=== PATIENT | male | born 1945 | race Caucasian/White ===

== ENCOUNTER 2016-09-11 07:06 | Day surgery (SDC) | payer MEDICARE, BC ==
[2016-09-11] MEDS ORDERED: Lactated Ringers 1,000 ML IV SCH (08:15)
[2016-09-11] MEDS ORDERED: Propofol 200 MG/20 ML SDV IV ONE (09:30)
[2016-09-11] MEDS ORDERED: Midazolam 1 MG/ML 2 ML SDV IV ONE (09:30)
--- NOTE | 2016-09-11 10:02 | PCM.OPNOTE ---
- General Post-Op/Procedure Note Date of Surgery/Procedure: 09/11/16 Operative Procedure(s): c scope Findings: normal colon Pre Op Diagnosis: hx of dysplastic polyps Post-Op Diagnosis: nl colon Anesthesia Technique: MAC Primary Surgeon: Jonathan Rhoades Anesthesia Provider: Cammy Crook Pathology: none Complications: None Condition: Good Free Text/Narrative:: see dictation
[2016-09-11 12:08] VITALS: BP 138/93
--- NOTE | 2016-09-11 15:17 | OR ---
DATE OF OPERATION: 09/11/2016 SURGEON: Jonathan Rhoades MD PROCEDURE PERFORMED: Colonoscopy. PREOPERATIVE DIAGNOSIS: History of dysplastic polyps. POSTOPERATIVE DIAGNOSIS: Normal scope. INDICATIONS FOR PROCEDURE: This is a 70-year-old white male who presents for followup colonoscopy. Last scoped was 6 months ago, demonstrated some polyps with low-grade dysplasia. He was offered and accepted colonoscopy. DESCRIPTION OF PROCEDURE: After an excellent IV sedation was administered, digital rectal exam was performed. No marked abnormality was noted. Flexible colonoscope was inserted and advanced to the cecum. The prep was adequate. There were some areas that we had to irrigate. There was some particulate matter that did clog the scope. We did get an adequate view of the colon. The following findings were noted: Ascending colon, unremarkable. Transverse colon, unremarkable. Descending colon, unremarkable. Sigmoid and rectum unremarkable. Colon was deflated, scope was removed. The patient tolerated the procedure well and was taken to recovery room in good condition. RECOMMENDATIONS: Repeat colonoscopy in 3 years due to the prep. Follow up sooner pjas /[id number] /MODL
== END 2016-09-11 11:44 | disposition home or self-care (01) ==
LOC: FB.SDS 07:06
PROVIDERS: ATTEND Surgery
DX: Z12.11 Encounter for screening for malignant neoplasm of colon (principal); I10 Essential (primary) hypertension; F41.9 Anxiety disorder, unspecified; F32.9 Major depressive disorder, single episode, unspecified; Z79.899 Other long term (current) drug therapy; Z90.49 Acquired absence of other specified parts of digestive tract; Z98.890 Other specified postprocedural states
CPT/HCPCS: 00902; G0105; J2250; J2704; J7120

== ENCOUNTER 2019-09-13 16:48 | Inpatient (IN) | payer MEDICARE, BC ==
[2019-09-13] MEDS ORDERED: Thiamine 100 MG in Sodium Chloride 0.9% 100 ML IV ONE (17:20)
[2019-09-13] MEDS ORDERED: Dextrose 5%-0.45% NaCl 1,000 ML IV SCH (17:30)
--- NOTE | 2019-09-13 17:49 | EDM.PDOC ---
ED HPI GENERAL MEDICAL PROBLEM - General Chief Complaint: Drug or Alcohol Abuse Stated Complaint: DISORIENTED Time Seen by Provider: 09/13/19 16:55 Source of Information: Reports: Patient History Limitations: Reports: No Limitations - History of Present Illness INITIAL COMMENTS - FREE TEXT/NARRATIVE: Patient presented to the ED because of slurred speech and altered LOC. He is also confused and disoriented. There is no N/V or abdominal pain. He drinks on a daily basis and had seizure related to alcohol intoxication and withdrawal. He texted his who left him a month ago that he is better of not around and will just watch his grand kids from above. - Related Data Allergies Allergy/AdvReac Type Severity Reaction Status Date / Time No Known Allergies Allergy Verified 09/11/16 07:20 Home Meds: Home Meds busPIRone [Buspar] 15 mg PO BID 09/22/14 [History] Indomethacin [Indocin] 50 mg PO TIDMEALS #9 cap 10/03/14 [Rx] ALPRAZolam [Xanax] 1 mg PO BEDTIME 01/31/16 [History] Nortriptyline HCl [Pamelor] 100 mg PO BEDTIME 01/31/16 [History] PARoxetine HCl [Paxil] 40 mg PO BEDTIME 01/31/16 [History] Losartan/Hydrochlorothiazide [Losartan-HCTZ 100-12.5 MG] 12.5 - 100 mg PO DAILY 09/10/16 [History] Past Medical History HEENT History: Reports: Impaired Vision Cardiovascular History: Reports: Hypertension Respiratory History: Reports: None Gastrointestinal History: Reports: Colon Polyp, GI Bleed Genitourinary History: Reports: None Musculoskeletal History: Reports: Gout, Other (See Below) Other Musculoskeletal History: MAYALGIA AND MYOSITIS Other Neuro History: ATAXIA Psychiatric History: Reports: Anxiety, Depression Dermatologic History: Reports: Eczema - Infectious Disease History Infectious Disease History: Reports: Chicken Pox, Measles, Mononucleosis, Mumps - Past Surgical History Head Surgeries/Procedures: Reports: None HEENT Surgical History: Reports: Tonsillectomy Cardiovascular Surgical History: Reports: None GI Surgical History: Reports: None Male Surgical History: Reports: None Musculoskeletal Surgical History: Reports: None Oncologic Surgical History: Reports: None Social & Family History - Family History Family Medical History: Noncontributory - Tobacco Use Smoking Status *Q: Unknown Ever Smoked Used Tobacco, but Quit: No Second Hand Smoke Exposure: No - Caffeine Use Caffeine Use: Reports: Coffee - Recreational Drug Use Recreational Drug Use: No - Living Situation & Occupation Living situation: Reports: ED ROS GENERAL - Review of Systems Review Of Systems: See Below Constitutional: Denies: Fever, Chills HEENT: Reports: No Symptoms Respiratory: Reports: No Symptoms Cardiovascular: Reports: No Symptoms Endocrine: Reports: No Symptoms GI/Abdominal: Reports: No Symptoms : Reports: No Symptoms Musculoskeletal: Reports: No Symptoms Skin: Reports: No Symptoms Neurological: Reports: Confusion, Change in Speech. Denies: Headache Psychiatric: Reports: No Symptoms Hematologic/Lymphatic: Reports: No Symptoms Immunologic: Reports: No Symptoms - Physical Exam Exam: See Below Exam Limited By: Altered Mental Status General Appearance: Alert, No Apparent Distress Ears: Normal External Exam, Normal Canal, Hearing Grossly Normal Nose: Normal Inspection, Normal Mucosa, No Blood Throat/Mouth: Normal Inspection, Normal Lips, Normal Teeth, Normal Gums Head Exam: Atraumatic, Normocephalic Neck: Normal Inspection, Supple, Non-Tender, Full Range of Motion Respiratory/Chest: No Respiratory Distress, Lungs Clear, Normal Breath Sounds Cardiovascular: Normal Peripheral Pulses, Regular Rate, Rhythm, No Edema GI/Abdominal: Normal Bowel Sounds, Soft, Non-Tender, No Organomegaly, No Distention Neuro Exam (Abbreviated): No Motor/Sensory Deficits, Memory Loss Remote Events, Other (lethargic,disoriented and confused) Course - Vital Signs Text/Narrative:: Labs/Head CT-see result D5.9NS with thiamine 100 mg IV Detox will not take him because of his suicidal ideation and on the other hand [facility] will not evaluate him because he is intoxicated. Last Recorded V/S: Last Vital Signs Temp 36.5 C 09/13/19 16:50 Pulse 103 H 09/13/19 16:50 Resp 18 09/13/19 16:50 BP 135/84 09/13/19 16:50 Pulse Ox 99 09/13/19 16:50 - Orders/Labs/Meds Orders: Active Orders 24 hr Category Date Time Status Head wo Cont [CT] Stat Exams 09/13/19 16:53 Taken Dextrose 5%-0.9% NaCl [Dextrose 5%-Normal Saline] 1,000 Med 09/13/19 17:30 Active ml IV ASDIRECTED Medication Orders Dextrose/Sodium Chloride (Dextrose 5%-Normal Saline) 1,000 mls @ 999 mls/hr IV ASDIRECTED JITENDRA Last Admin: 09/13/19 18:11 Dose: 999 mls/hr Labs: Laboratory Tests 09/13/19 09/13/19 09/13/19 Range/Units 16:58 16:58 16:58 WBC 7.2 (4.5-12.0) X10-3/uL RBC 5.10 (4.30-5.75) x10(6)uL Hgb 15.5 (13.5-17.8) g/dL Hct 47.1 (30.0-51.3) % MCV 92.2 (80-96) fL MCH 30.3 (27.7-33.6) pg MCHC 32.9 (32.2-35.4) g/dL RDW 15.7 H (11.5-15.5) % Plt Count 282 (125-369) X10(3)uL MPV 6.3 L (7.4-10.4) fL Neut % (Auto) 70.6 (46-82) % Lymph % (Auto) 22.0 (13-37) % [place] % (Auto) 6.3 (4-12) % Eos % (Auto) 0 L (1.0-5.0) % Baso % (Auto) 1 (0-2) % Neut # (Auto) 5.0 (1.6-8.3) # Lymph # (Auto) 1.6 (0.6-5.0) # [place] # (Auto) 0.5 (0.0-1.3) # Eos # (Auto) 0.0 (0.0-0.8) # Baso # (Auto) 0.1 (0.0-0.2) # PT 9.3 (9.0-11.1) sec INR 0.96 L (1.00-1.24) APTT 23.4 L (24.4-33.2) SECONDS Sodium 141 (135-145) mmol/L Potassium 4.6 (3.5-5.3) mmol/L Chloride 103 (100-110) mmol/L Carbon Dioxide 23 (21-32) mmol/L BUN 24 H (7-18) mg/dL Creatinine 1.2 (0.70-1.30) mg/dL Est Cr Clr Drug Dosing 58.39 mL/min Estimated GFR (MDRD) 59 L (>60) BUN/Creatinine Ratio 20.0 (9-20) Glucose 60 L (80-116) mg/dL Calcium 8.5 L (8.6-10.2) mg/dL Total Bilirubin 0.5 (0.1-1.3) mg/dL AST 88 H (5-25) IU/L ALT 70 H (12-36) U/L Alkaline Phosphatase 97 (56-112) IU/L Troponin I (4.0-60.3) pg/mL Total Protein 7.1 (6.0-8.0) g/dL Albumin 3.6 (3.2-4.6) g/dL Globulin 3.5 g/dL Albumin/Globulin Ratio 1.0 Amylase (25-115) U/L Lipase (73-393) U/L Urine Opiates Screen (NEGATIVE) Ur Oxycodone Screen (NEGATIVE) Ur Propoxyphene Screen (NEGATIVE) Ur Barbituates Screen (NEGATIVE) Ur Tricyclics Screen (NEGATIVE) Ur Phencyclidine Scrn (NEGATIVE) Ur Amphetamine Screen (NEGATIVE) Urine MDMA Screen (NEGATIVE) U Benzodiazepines Scrn (NEGATIVE) U Cocaine Metab Screen (NEGATIVE) U Marijuana (THC) Screen (NEGATIVE) Ethyl Alcohol (<0.03) % 09/13/19 09/13/19 09/13/19 Range/Units 16:58 16:58 16:58 WBC (4.5-12.0) X10-3/uL RBC (4.30-5.75) x10(6)uL Hgb (13.5-17.8) g/dL Hct (30.0-51.3) % MCV (80-96) fL MCH (27.7-33.6) pg MCHC (32.2-35.4) g/dL RDW (11.5-15.5) % Plt Count (125-369) X10(3)uL MPV (7.4-10.4) fL Neut % (Auto) (46-82) % Lymph % (Auto) (13-37) % [place] % (Auto) (4-12) % Eos % (Auto) (1.0-5.0) % Baso % (Auto) (0-2) % Neut # (Auto) (1.6-8.3) # Lymph # (Auto) (0.6-5.0) # [place] # (Auto) (0.0-1.3) # Eos # (Auto) (0.0-0.8) # Baso # (Auto) (0.0-0.2) # PT (9.0-11.1) sec INR (1.00-1.24) APTT (24.4-33.2) SECONDS Sodium (135-145) mmol/L Potassium (3.5-5.3) mmol/L Chloride (100-110) mmol/L Carbon Dioxide (21-32) mmol/L BUN (7-18) mg/dL Creatinine (0.70-1.30) mg/dL Est Cr Clr Drug Dosing mL/min Estimated GFR (MDRD) (>60) BUN/Creatinine Ratio (9-20) Glucose (80-116) mg/dL Calcium (8.6-10.2) mg/dL Total Bilirubin (0.1-1.3) mg/dL AST (5-25) IU/L ALT (12-36) U/L Alkaline Phosphatase (56-112) IU/L Troponin I 15.8 (4.0-60.3) pg/mL Total Protein (6.0-8.0) g/dL Albumin (3.2-4.6) g/dL Globulin g/dL Albumin/Globulin Ratio Amylase 64 (25-115) U/L Lipase 102 (73-393) U/L Urine Opiates Screen (NEGATIVE) Ur Oxycodone Screen (NEGATIVE) Ur Propoxyphene Screen (NEGATIVE) Ur Barbituates Screen (NEGATIVE) Ur Tricyclics Screen (NEGATIVE) Ur Phencyclidine Scrn (NEGATIVE) Ur Amphetamine Screen (NEGATIVE) Urine MDMA Screen (NEGATIVE) U Benzodiazepines Scrn (NEGATIVE) U Cocaine Metab Screen (NEGATIVE) U Marijuana (THC) Screen (NEGATIVE) Ethyl Alcohol 0.25 H* (<0.03) % 09/13/19 Range/Units 18:26 WBC (4.5-12.0) X10-3/uL RBC (4.30-5.75) x10(6)uL Hgb (13.5-17.8) g/dL Hct (30.0-51.3) % MCV (80-96) fL MCH (27.7-33.6) pg MCHC (32.2-35.4) g/dL RDW (11.5-15.5) % Plt Count (125-369) X10(3)uL MPV (7.4-10.4) fL Neut % (Auto) (46-82) % Lymph % (Auto) (13-37) % [place] % (Auto) (4-12) % Eos % (Auto) (1.0-5.0) % Baso % (Auto) (0-2) % Neut # (Auto) (1.6-8.3) # Lymph # (Auto) (0.6-5.0) # [place] # (Auto) (0.0-1.3) # Eos # (Auto) (0.0-0.8) # Baso # (Auto) (0.0-0.2) # PT (9.0-11.1) sec INR (1.00-1.24) APTT (24.4-33.2) SECONDS Sodium (135-145) mmol/L Potassium (3.5-5.3) mmol/L Chloride (100-110) mmol/L Carbon Dioxide (21-32) mmol/L BUN (7-18) mg/dL Creatinine (0.70-1.30) mg/dL Est Cr Clr Drug Dosing mL/min Estimated GFR (MDRD) (>60) BUN/Creatinine Ratio (9-20) Glucose (80-116) mg/dL Calcium (8.6-10.2) mg/dL Total Bilirubin (0.1-1.3) mg/dL AST (5-25) IU/L ALT (12-36) U/L Alkaline Phosphatase (56-112) IU/L Troponin I (4.0-60.3) pg/mL Total Protein (6.0-8.0) g/dL Albumin (3.2-4.6) g/dL Globulin g/dL Albumin/Globulin Ratio Amylase (25-115) U/L Lipase (73-393) U/L Urine Opiates Screen Negative (NEGATIVE) Ur Oxycodone Screen Negative (NEGATIVE) Ur Propoxyphene Screen Negative (NEGATIVE) Ur Barbituates Screen Negative (NEGATIVE) Ur Tricyclics Screen Positive H (NEGATIVE) Ur Phencyclidine Scrn Negative (NEGATIVE) Ur Amphetamine Screen Negative (NEGATIVE) Urine MDMA Screen Negative (NEGATIVE) U Benzodiazepines Scrn Positive H (NEGATIVE) U Cocaine Metab Screen Negative (NEGATIVE) U Marijuana (THC) Screen Negative (NEGATIVE) Ethyl Alcohol (<0.03) % Meds: Medications Generic Name Dose Route Start Last Admin Trade Name Freq PRN Reason Stop Dose Admin Dextrose/Sodium Chloride 1,000 mls @ 999 mls/hr 09/13/19 17:30 09/13/19 18:11 Dextrose 5%-Normal Saline IV 999 mls/hr ASDIRECTED JITENDRA Administration Discontinued Medications Generic Name Dose Route Start Last Admin Trade Name Freq PRN Reason Stop Dose Admin Dextrose/Sodium Chloride 1,000 mls @ 999 mls/hr 09/13/19 17:30 Dextrose 5%-1/2 Ns IV ASDIRECTED JITENDRA Thiamine HCl 100 mg/ Sodium 101 mls @ 202 mls/hr 09/13/19 17:20 09/13/19 17: 38 Chloride IV 09/13/19 17:21 202 mls/hr ONETIME ONE Administration Departure - Departure Time of Disposition: 19:25 Disposition: Refer to Observation Condition: Good Clinical Impression: Alcohol intoxication, Suicidal ideation - Discharge Information Referrals: Roya Vergara NP [Primary Care Provider] - Forms: ED Department Discharge Sepsis Event Note - Evaluation Sepsis Screening Result: No Definite Risk - Focused Exam Vital Signs: Vital Signs Temp Pulse Resp BP Pulse Ox 09/13/19 16:50 36.5 C 103 H 18 135/84 99 Date Exam was Performed: 09/13/19 Time Exam was Performed: 19:22 - My Orders Last 24 Hours: My Active Orders 09/13/19 16:53 Head wo Cont [CT] Stat 09/13/19 17:30 Dextrose 5%-0.9% NaCl [Dextrose 5%-Normal Saline] 1,000 ml IV ASDIRECTED - Assessment/Plan Last 24 Hours: My Active Orders 09/13/19 16:53 Head wo Cont [CT] Stat 09/13/19 17:30 Dextrose 5%-0.9% NaCl [Dextrose 5%-Normal Saline] 1,000 ml IV ASDIRECTED
[2019-09-13] MEDS: Dextrose 5%-0.9% NaCl 1,000 ML IV SCH (18:11)
[2019-09-13] MEDS ORDERED: LORazepam 2 MG/ML SDV IVPUSH PRN (20:58)
[2019-09-14] MEDS ORDERED: Ketorolac 30 MG/ML SDV IM ONE (02:51)
[2019-09-14] MEDS: Sodium Chloride 0.9% 10 ML Syringe FLUSH PRN ×2 (02:56→12:40)
[2019-09-14] MEDS ORDERED: Ondansetron 4 MG/2 ML SDV IV PRN (04:12)
[2019-09-14] MEDS ORDERED: Docusate Sodium 100 MG Cap PO PRN (04:12)
[2019-09-14] MEDS ORDERED: Enoxaparin 40 MG/0.4 ML Syringe SUBCUT SCH (04:15)
[2019-09-14] MEDS ORDERED: Pantoprazole 40 MG Vial IVPUSH SCH (04:15)
[2019-09-14] MEDS: Dextrose 5%-0.9% NaCl 1,000 ML IV SCH (04:26)
[2019-09-14] MEDS ORDERED: Dextrose 5%-0.9% NaCl 1,000 ML IV SCH (04:30)
[2019-09-14] MEDS ORDERED: LORazepam 1 MG Tab PO SCH (10:00)
[2019-09-14] MEDS ORDERED: LORazepam 2 MG/ML SDV IV SCH (10:00)
--- NOTE | 2019-09-14 10:44 | CR ---
INDICATION: Alcohol intoxication. CHEST ONE VIEW: AP upright portable of the chest 09/14/19 was compared with 11/14. The heart appears to be slightly increased in size compared with the previous study with left ventricular prominence. The aorta is definitely more tortuous than on the previous study with minimal calcification suggested in the arch. Overlying EKG leads are noted. Linear densities are noted at the left lung base which may represent fibrosis and/or linear atelectasis. A definite active infiltrate or effusion was not identified. IMPRESSION: 1. Progressive ASHD. 2. Linear changes at the left lung base may represent linear atelectasis and/ or fibrosis. MTDD
--- NOTE | 2019-09-14 12:58 | PCM.DCSUM1 ---
Discharge Summary - Hospital Course HPI Initial Comments: Patient presented to the ED because of slurred speech and altered LOC. He is also confused and disoriented. There is no N/V or abdominal pain. He drinks on a daily basis and has had seizure related to alcohol intoxication and withdrawal. He texted his who left him a month ago that he is better of not around and will just watch his grand kids from above. Diagnosis: Stroke: No - Discharge Data Discharge Date: 09/14/19 ([facility]) Discharge Disposition: DC/Tfer to Acute Hospital 02 Condition: Stable - Referral to Home Health Primary Care Physician: Roya Vergara NP - Discharge Diagnosis/Problem(s) (1) Alcohol intoxication SNOMED Code(s): 37248722 ICD Code: F10.929 - ALCOHOL USE, UNSPECIFIED WITH INTOXICATION, UNSPECIFIED Status: Acute Current Visit: Yes (2) Suicidal ideation SNOMED Code(s): 6863634 ICD Code: R45.851 - SUICIDAL IDEATIONS Status: Acute Current Visit: Yes (3) Alcohol withdrawal syndrome SNOMED Code(s): 184571185 ICD Code: F10.239 - ALCOHOL DEPENDENCE WITH WITHDRAWAL, UNSPECIFIED Status : Acute Priority: High Current Visit: No Onset Date: 09/23/14 Problem Details: admit ICU (4) Gout SNOMED Code(s): 52894306 ICD Code: M10.9 - GOUT, UNSPECIFIED Status: Chronic Current Visit: No (5) Seizure due to alcohol withdrawal SNOMED Code(s): 624128225 ICD Code: F10.239 - ALCOHOL DEPENDENCE WITH WITHDRAWAL, UNSPECIFIED; R56.9 - UNSPECIFIED CONVULSIONS Status: Chronic Current Visit: Yes (6) Hypertension SNOMED Code(s): 24423863 ICD Code: I10 - ESSENTIAL (PRIMARY) HYPERTENSION Status: Chronic Priority : Low Current Visit: No Problem Details: continue medications - Patient Summary/Data Hospital Course: Patient came in early this morning with alcohol intoxication and some suicidal ideation, ER had contacted Detox and they wouldn't take due to suicidal ideation and Psych would not take due to intoxication. Labs showed some mild AST /ALT elevation, electrolytes where normal. CBC normal. Drug screen showed tricyclics and benzos which are home medications. Salicylates and Acetaminophen were negative. Alcohol was 0.250 at 4 am. He drinks heavily daily. History of seizure with withdrawal as well as hallucinations and DTs. Has been in treatment numerous times. States he had been sober for 4 years until Jun 2019 then started again, his left about a month ago and drinking more. He is interested in treatment. Spoke with [facility] as we are short staff to do 1 on 1 cares. He is still intoxicated. They accepted transfer to their [facility]. His Sayda is agreeable to transport him up to [place] for admission. - Patient Instructions Diet: Regular Diet as Tolerated, No Alcoholic Beverages Other/Special Instructions: Transfer to [facility] - Discharge Plan *PRESCRIPTION DRUG MONITORING PROGRAM REVIEWED*: Not Applicable *COPY OF PRESCRIPTION DRUG MONITORING REPORT IN PATIENT MERISSA: Not Applicable Home Medications: Home Meds busPIRone [Buspar] 15 mg PO BID 09/22/14 [History] Indomethacin [Indocin] 50 mg PO TIDMEALS #9 cap 10/03/14 [Rx] ALPRAZolam [Xanax] 1 mg PO BEDTIME 01/31/16 [History] Nortriptyline HCl [Pamelor] 100 mg PO BEDTIME 01/31/16 [History] PARoxetine HCl [Paxil] 40 mg PO BEDTIME 01/31/16 [History] Losartan/Hydrochlorothiazide [Losartan-HCTZ 100-12.5 MG] 1 tab PO DAILY [History] Oxygen Therapy Mode: Room Air Forms: ED Department Discharge Referrals: Roya Vergara, [facility] [Primary Care Provider] - - Discharge Summary/Plan Comment DC Time >30 min.: Yes - General Info Date of Service: 09/14/19 Admission Dx/Problem (Free Text: Denies suicidal thoughts this morning. Has trouble completing his sentences, still intoxicated. He states he is interested in doing treatment, prefers outpatient with [facility] services. Denies any fevers, cough, shortness of breath, abdominal pain. - Patient Data Vitals - Most Recent: Last Vital Signs Temp 98.0 F 09/14/19 08:12 Pulse 76 09/14/19 08:12 Resp 16 09/14/19 08:12 BP 150/97 H 09/14/19 08:12 Pulse Ox 99 09/14/19 08:12 Weight - Most Recent: 188 lb 7 oz I&O - Last 24 hours: Intake & Output 09/13/19 09/14/19 09/14/19 22:59 06:59 14:59 Intake Total 1101 227 300 Output Total 100 Balance 1001 227 300 Lab Results - Last 24 hrs: Laboratory Results - last 24 hr 09/13/19 09/13/19 09/13/19 Range/Units 16:58 16:58 16:58 WBC 7.2 (4.5-12.0) X10-3/uL RBC 5.10 (4.30-5.75) x10(6)uL Hgb 15.5 (13.5-17.8) g/dL Hct 47.1 (30.0-51.3) % MCV 92.2 (80-96) fL MCH 30.3 (27.7-33.6) pg MCHC 32.9 (32.2-35.4) g/dL RDW 15.7 H (11.5-15.5) % Plt Count 282 (125-369) X10(3)uL MPV 6.3 L (7.4-10.4) fL Neut % (Auto) 70.6 (46-82) % Lymph % (Auto) 22.0 (13-37) % [place] % (Auto) 6.3 (4-12) % Eos % (Auto) 0 L (1.0-5.0) % Baso % (Auto) 1 (0-2) % Neut # (Auto) 5.0 (1.6-8.3) # Lymph # (Auto) 1.6 (0.6-5.0) # [place] # (Auto) 0.5 (0.0-1.3) # Eos # (Auto) 0.0 (0.0-0.8) # Baso # (Auto) 0.1 (0.0-0.2) # PT 9.3 (9.0-11.1) sec INR 0.96 L (1.00-1.24) APTT 23.4 L (24.4-33.2) SECONDS Sodium 141 (135-145) mmol/L Potassium 4.6 (3.5-5.3) mmol/L Chloride 103 (100-110) mmol/L Carbon Dioxide 23 (21-32) mmol/L BUN 24 H (7-18) mg/dL Creatinine 1.2 (0.70-1.30) mg/dL Est Cr Clr Drug Dosing 58.39 mL/min Estimated GFR (MDRD) 59 L (>60) BUN/Creatinine Ratio 20.0 (9-20) Glucose 60 L (80-116) mg/dL Calcium 8.5 L (8.6-10.2) mg/dL Phosphorus (2.6-4.6) mg/dL Magnesium (1.8-2.5) mg/dL Total Bilirubin 0.5 (0.1-1.3) mg/dL AST 88 H (5-25) IU/L ALT 70 H (12-36) U/L Alkaline Phosphatase 97 (56-112) IU/L Troponin I (4.0-60.3) pg/mL Total Protein 7.1 (6.0-8.0) g/dL Albumin 3.6 (3.2-4.6) g/dL Globulin 3.5 g/dL Albumin/Globulin Ratio 1.0 Amylase (25-115) U/L Lipase (73-393) U/L TSH, Ultra Sensitive (0.36-3.74) IU/mL Salicylates (<2.8) mg/dL Urine Opiates Screen (NEGATIVE) Ur Oxycodone Screen (NEGATIVE) Ur Propoxyphene Screen (NEGATIVE) Acetaminophen (<2) ug/mL Ur Barbituates Screen (NEGATIVE) Ur Tricyclics Screen (NEGATIVE) Ur Phencyclidine Scrn (NEGATIVE) Ur Amphetamine Screen (NEGATIVE) Urine MDMA Screen (NEGATIVE) U Benzodiazepines Scrn (NEGATIVE) U Cocaine Metab Screen (NEGATIVE) U Marijuana (THC) Screen (NEGATIVE) Ethyl Alcohol (<0.03) % 09/13/19 09/13/19 09/13/19 Range/Units 16:58 16:58 16:58 WBC (4.5-12.0) X10-3/uL RBC (4.30-5.75) x10(6)uL Hgb (13.5-17.8) g/dL Hct (30.0-51.3) % MCV (80-96) fL MCH (27.7-33.6) pg MCHC (32.2-35.4) g/dL RDW (11.5-15.5) % Plt Count (125-369) X10(3)uL MPV (7.4-10.4) fL Neut % (Auto) (46-82) % Lymph % (Auto) (13-37) % [place] % (Auto) (4-12) % Eos % (Auto) (1.0-5.0) % Baso % (Auto) (0-2) % Neut # (Auto) (1.6-8.3) # Lymph # (Auto) (0.6-5.0) # [place] # (Auto) (0.0-1.3) # Eos # (Auto) (0.0-0.8) # Baso # (Auto) (0.0-0.2) # PT (9.0-11.1) sec INR (1.00-1.24) APTT (24.4-33.2) SECONDS Sodium (135-145) mmol/L Potassium (3.5-5.3) mmol/L Chloride (100-110) mmol/L Carbon Dioxide (21-32) mmol/L BUN (7-18) mg/dL Creatinine (0.70-1.30) mg/dL Est Cr Clr Drug Dosing mL/min Estimated GFR (MDRD) (>60) BUN/Creatinine Ratio (9-20) Glucose (80-116) mg/dL Calcium (8.6-10.2) mg/dL Phosphorus (2.6-4.6) mg/dL Magnesium (1.8-2.5) mg/dL Total Bilirubin (0.1-1.3) mg/dL AST (5-25) IU/L ALT (12-36) U/L Alkaline Phosphatase (56-112) IU/L Troponin I 15.8 (4.0-60.3) pg/mL Total Protein (6.0-8.0) g/dL Albumin (3.2-4.6) g/dL Globulin g/dL Albumin/Globulin Ratio Amylase 64 (25-115) U/L Lipase 102 (73-393) U/L TSH, Ultra Sensitive (0.36-3.74) IU/mL Salicylates (<2.8) mg/dL Urine Opiates Screen (NEGATIVE) Ur Oxycodone Screen (NEGATIVE) Ur Propoxyphene Screen (NEGATIVE) Acetaminophen (<2) ug/mL Ur Barbituates Screen (NEGATIVE) Ur Tricyclics Screen (NEGATIVE) Ur Phencyclidine Scrn (NEGATIVE) Ur Amphetamine Screen (NEGATIVE) Urine MDMA Screen (NEGATIVE) U Benzodiazepines Scrn (NEGATIVE) U Cocaine Metab Screen (NEGATIVE) U Marijuana (THC) Screen (NEGATIVE) Ethyl Alcohol 0.25 H* (<0.03) % 09/13/19 09/13/19 09/13/19 Range/Units 16:58 16:58 16:58 WBC (4.5-12.0) X10-3/uL RBC (4.30-5.75) x10(6)uL Hgb (13.5-17.8) g/dL Hct (30.0-51.3) % MCV (80-96) fL MCH (27.7-33.6) pg MCHC (32.2-35.4) g/dL RDW (11.5-15.5) % Plt Count (125-369) X10(3)uL MPV (7.4-10.4) fL Neut % (Auto) (46-82) % Lymph % (Auto) (13-37) % [place] % (Auto) (4-12) % Eos % (Auto) (1.0-5.0) % Baso % (Auto) (0-2) % Neut # (Auto) (1.6-8.3) # Lymph # (Auto) (0.6-5.0) # [place] # (Auto) (0.0-1.3) # Eos # (Auto) (0.0-0.8) # Baso # (Auto) (0.0-0.2) # PT (9.0-11.1) sec INR (1.00-1.24) APTT (24.4-33.2) SECONDS Sodium (135-145) mmol/L Potassium (3.5-5.3) mmol/L Chloride (100-110) mmol/L Carbon Dioxide (21-32) mmol/L BUN (7-18) mg/dL Creatinine (0.70-1.30) mg/dL Est Cr Clr Drug Dosing mL/min Estimated GFR (MDRD) (>60) BUN/Creatinine Ratio (9-20) Glucose (80-116) mg/dL Calcium (8.6-10.2) mg/dL Phosphorus (2.6-4.6) mg/dL Magnesium (1.8-2.5) mg/dL Total Bilirubin (0.1-1.3) mg/dL AST (5-25) IU/L ALT (12-36) U/L Alkaline Phosphatase (56-112) IU/L Troponin I (4.0-60.3) pg/mL Total Protein (6.0-8.0) g/dL Albumin (3.2-4.6) g/dL Globulin g/dL Albumin/Globulin Ratio Amylase (25-115) U/L Lipase (73-393) U/L TSH, Ultra Sensitive 0.51 (0.36-3.74) IU/mL Salicylates 0.8 L (<2.8) mg/dL Urine Opiates Screen (NEGATIVE) Ur Oxycodone Screen (NEGATIVE) Ur Propoxyphene Screen (NEGATIVE) Acetaminophen < 2 L (<2) ug/mL Ur Barbituates Screen (NEGATIVE) Ur Tricyclics Screen (NEGATIVE) Ur Phencyclidine Scrn (NEGATIVE) Ur Amphetamine Screen (NEGATIVE) Urine MDMA Screen (NEGATIVE) U Benzodiazepines Scrn (NEGATIVE) U Cocaine Metab Screen (NEGATIVE) U Marijuana (THC) Screen (NEGATIVE) Ethyl Alcohol (<0.03) % 09/13/19 09/14/19 09/14/19 Range/Units 18:26 06:15 06:15 WBC 6.5 (4.5-12.0) X10-3/uL RBC 4.51 (4.30-5.75) x10(6)uL Hgb 13.7 (13.5-17.8) g/dL Hct 41.1 (30.0-51.3) % MCV 91.3 (80-96) fL MCH 30.4 (27.7-33.6) pg MCHC 33.3 (32.2-35.4) g/dL RDW 15.5 (11.5-15.5) % Plt Count 246 (125-369) X10(3)uL MPV 6.5 L (7.4-10.4) fL Neut % (Auto) 72.0 (46-82) % Lymph % (Auto) 19.4 (13-37) % [place] % (Auto) 7.3 (4-12) % Eos % (Auto) 1 (1.0-5.0) % Baso % (Auto) 1 (0-2) % Neut # (Auto) 4.6 (1.6-8.3) # Lymph # (Auto) 1.3 (0.6-5.0) # [place] # (Auto) 0.5 (0.0-1.3) # Eos # (Auto) 0.1 (0.0-0.8) # Baso # (Auto) 0.0 (0.0-0.2) # PT (9.0-11.1) sec INR (1.00-1.24) APTT (24.4-33.2) SECONDS Sodium 141 (135-145) mmol/L Potassium 4.8 (3.5-5.3) mmol/L Chloride 105 (100-110) mmol/L Carbon Dioxide 28 (21-32) mmol/L BUN 24 H (7-18) mg/dL Creatinine 1.0 (0.70-1.30) mg/dL Est Cr Clr Drug Dosing 70.07 mL/min Estimated GFR (MDRD) > 60 (>60) BUN/Creatinine Ratio 24.0 H (9-20) Glucose 89 (80-116) mg/dL Calcium 7.8 L (8.6-10.2) mg/dL Phosphorus 2.3 L (2.6-4.6) mg/dL Magnesium 1.9 (1.8-2.5) mg/dL Total Bilirubin 0.8 (0.1-1.3) mg/dL AST 93 H (5-25) IU/L ALT 69 H (12-36) U/L Alkaline Phosphatase 81 (56-112) IU/L Troponin I (4.0-60.3) pg/mL Total Protein 6.1 (6.0-8.0) g/dL Albumin 3.1 L (3.2-4.6) g/dL Globulin 3.0 g/dL Albumin/Globulin Ratio 1.0 Amylase (25-115) U/L Lipase (73-393) U/L TSH, Ultra Sensitive (0.36-3.74) IU/mL Salicylates (<2.8) mg/dL Urine Opiates Screen Negative (NEGATIVE) Ur Oxycodone Screen Negative (NEGATIVE) Ur Propoxyphene Screen Negative (NEGATIVE) Acetaminophen (<2) ug/mL Ur Barbituates Screen Negative (NEGATIVE) Ur Tricyclics Screen Positive H (NEGATIVE) Ur Phencyclidine Scrn Negative (NEGATIVE) Ur Amphetamine Screen Negative (NEGATIVE) Urine MDMA Screen Negative (NEGATIVE) U Benzodiazepines Scrn Positive H (NEGATIVE) U Cocaine Metab Screen Negative (NEGATIVE) U Marijuana (THC) Screen Negative (NEGATIVE) Ethyl Alcohol (<0.03) % 09/14/19 Range/Units 06:15 WBC (4.5-12.0) X10-3/uL RBC (4.30-5.75) x10(6)uL Hgb (13.5-17.8) g/dL Hct (30.0-51.3) % MCV (80-96) fL MCH (27.7-33.6) pg MCHC (32.2-35.4) g/dL RDW (11.5-15.5) % Plt Count (125-369) X10(3)uL MPV (7.4-10.4) fL Neut % (Auto) (46-82) % Lymph % (Auto) (13-37) % [place] % (Auto) (4-12) % Eos % (Auto) (1.0-5.0) % Baso % (Auto) (0-2) % Neut # (Auto) (1.6-8.3) # Lymph # (Auto) (0.6-5.0) # [place] # (Auto) (0.0-1.3) # Eos # (Auto) (0.0-0.8) # Baso # (Auto) (0.0-0.2) # PT (9.0-11.1) sec INR (1.00-1.24) APTT (24.4-33.2) SECONDS Sodium (135-145) mmol/L Potassium (3.5-5.3) mmol/L Chloride (100-110) mmol/L Carbon Dioxide (21-32) mmol/L BUN (7-18) mg/dL Creatinine (0.70-1.30) mg/dL Est Cr Clr Drug Dosing mL/min Estimated GFR (MDRD) (>60) BUN/Creatinine Ratio (9-20) Glucose (80-116) mg/dL Calcium (8.6-10.2) mg/dL Phosphorus (2.6-4.6) mg/dL Magnesium (1.8-2.5) mg/dL Total Bilirubin (0.1-1.3) mg/dL AST (5-25) IU/L ALT (12-36) U/L Alkaline Phosphatase (56-112) IU/L Troponin I (4.0-60.3) pg/mL Total Protein (6.0-8.0) g/dL Albumin (3.2-4.6) g/dL Globulin g/dL Albumin/Globulin Ratio Amylase (25-115) U/L Lipase (73-393) U/L TSH, Ultra Sensitive (0.36-3.74) IU/mL Salicylates (<2.8) mg/dL Urine Opiates Screen (NEGATIVE) Ur Oxycodone Screen (NEGATIVE) Ur Propoxyphene Screen (NEGATIVE) Acetaminophen (<2) ug/mL Ur Barbituates Screen (NEGATIVE) Ur Tricyclics Screen (NEGATIVE) Ur Phencyclidine Scrn (NEGATIVE) Ur Amphetamine Screen (NEGATIVE) Urine MDMA Screen (NEGATIVE) U Benzodiazepines Scrn (NEGATIVE) U Cocaine Metab Screen (NEGATIVE) U Marijuana (THC) Screen (NEGATIVE) Ethyl Alcohol < 0.03 (<0.03) % Med Orders - Current: Current Medications Docusate Sodium (Colace) 100 mg PO BID PRN PRN Reason: Constipation Enoxaparin Sodium (Lovenox) 40 mg SUBCUT Q24H JITENDRA Dextrose/Sodium Chloride (Dextrose 5%-Normal Saline) 1,000 mls @ 999 mls/hr IV ASDIRECTED JITENDRA Last Admin: 09/14/19 04:26 Dose: 999 mls/hr Dextrose/Sodium Chloride (Dextrose 5%-Normal Saline) 1,000 mls @ 125 mls/hr IV ASDIRECTED JITENDRA Lorazepam (Ativan) 0 mg PO ASDIRECTED JITENDRA; Protocol Lorazepam (Ativan) 0 mg IV ASDIRECTED JITENDRA; Protocol Ondansetron HCl (Zofran) 4 mg IV Q4H PRN PRN Reason: Nausea/Vomiting Pantoprazole Sodium (Protonix Iv) 40 mg IVPUSH Q24H JITENDRA Last Admin: 04/13/20 05:32 Dose: 40 mg Sodium Chloride (Saline Flush) 10 ml FLUSH ASDIRECTED PRN PRN Reason: Other Last Admin: 09/14/19 02:56 Dose: 10 ml Discontinued Medications Enoxaparin Sodium (Lovenox) 40 mg SUBCUT Q24H [facility] Last Admin: 09/14/19 05:33 Dose: 40 mg Dextrose/Sodium Chloride (Dextrose 5%-1/2 Ns) 1,000 mls @ 999 mls/hr IV ASDIRECTED JITENDRA Thiamine HCl 100 mg/ Sodium (Chloride) 101 mls @ 202 mls/hr IV ONETIME ONE Stop: 09/13/19 17:21 Last Admin: 09/13/19 17:38 Dose: 202 mls/hr Ketorolac Tromethamine (Toradol) 15 mg IM ONETIME ONE Stop: 09/14/19 02:52 Last Admin: 09/14/19 02:55 Dose: 15 mg Lorazepam (Ativan) 2 mg IVPUSH ONETIME PRN PRN Reason: Anxiety Last Admin: 09/14/19 02:29 Dose: 2 mg - Exam General: Reports: Cooperative, No Acute Distress, Other (Intoxicated) Lungs: Reports: Clear to Auscultation, Normal Respiratory Effort Cardiovascular: Reports: Regular Rate, Regular Rhythm GI/Abdominal Exam: Normal Bowel Sounds, Soft, Non-Tender, No Distention Extremities: No Pedal Edema Neurological: Reports: Other (tremors) Psy/Mental Status: Denies: Suicidal Ideation, Hallucinations
[2019-09-14 15:10] VITALS: BP 144/100; PULSE 89
[2019-09-15] MEDS ORDERED: Enoxaparin 40 MG/0.4 ML Syringe SUBCUT SCH (08:00)
== END 2019-09-14 14:30 | DRG 897 ==
LOC: FB.ED 16:48 → FB.MS 09-14 04:32 → FB.ICU 09-14 04:57
PROVIDERS: ADMIT Emergency Medicine; ATTEND Family Medicine
DX: R45.851 Suicidal ideations (principal); F10.129 Alcohol abuse with intoxication, unspecified; Y90.9 Presence of alcohol in blood, level not specified; H54.7 Unspecified visual loss; F10.229 Alcohol dependence with intoxication, unspecified; F10.239 Alcohol dependence with withdrawal, unspecified; Z86.010 Personal history of colon polyps; Y90.0 Blood alcohol level of less than 20 mg/100 ml; R56.9 Unspecified convulsions; I10 Essential (primary) hypertension; M10.9 Gout, unspecified; F10.231 Alcohol dependence with withdrawal delirium; F41.9 Anxiety disorder, unspecified; F32.9 Major depressive disorder, single episode, unspecified; Z79.899 Other long term (current) drug therapy
CPT/HCPCS: 36415; 70450; 71045; 80053; 80305-QW; 80307; 82150; 83690; 83735; 84100; 84439; 84443; 84484; 85025; 85610; 85730; 96365; 96372; 96375; 99283; 99285-25; A9270-GY; C9113; J1650; J1885; J2060; J3411; J7050

== ENCOUNTER 2019-09-21 12:13 | Inpatient (IN) | payer MEDICARE, BC ==
[2019-09-21] MEDS: Indomethacin 25 MG Cap PO SCH (18:34)
[2019-09-21] MEDS: atorvaSTATin 10 MG Tab PO SCH (21:19)
[2019-09-21] MEDS: Aspirin 81 MG Tab.EC PO SCH (21:19)
[2019-09-21] MEDS: PARoxetine 20 MG Tab PO SCH (21:20)
[2019-09-21] MEDS ORDERED: Nortriptyline 25 MG Cap PO ONE (21:30)
[2019-09-22] MEDS: Indomethacin 25 MG Cap PO SCH (08:14)
[2019-09-22] MEDS: Losartan 100 MG Tab PO SCH (08:15)
[2019-09-22] MEDS: Propranolol 60 MG Cap.ER PO SCH (08:15)
[2019-09-22] MEDS: Hydrochlorothiazide 25 MG Tab PO SCH (08:15)
--- NOTE | 2019-09-22 10:38 | PN ---
DATE SEEN: 09/22/2019 Matthias Sands is a 73-year-old male admitted for rehab purposes. He had a lengthy 1-week stay in [place] for acute alcohol withdrawal. He had been drinking heavily since June. Lost his dog. Therapy is in place, appears to be more of a neuro/mental/cognitive impairment issue. Discharge home maybe a contrary thought, rehab intervention in the meantime. /[id number] JACQUELINE/TASH
--- NOTE | 2019-09-22 11:10 | HP ---
ADMISSION DATE: 09/21/2019 CHIEF COMPLAINT: Rehab, complicated alcohol disorder. HISTORY OF PRESENT ILLNESS: Matthias Sands is a 73-year-old male from [place], who was admitted in followup. Had acute care stay from 09/14/2019 to 09/21/2019 at [facility]. Admitted with acute alcohol intoxication, subsequent withdrawal, moderately severe withdrawal with usual treatment. After improvement withdrawal symptoms, the patient's underlying cognitive impairment was markedly impaired. Undergone MOCA assessment, scoring 15/30, particular deficits were more severe in areas such as short-term memory, coordination, organized thinking, unable to place hands and numbers in order to draw clock, unable to hold a functional conversation without diverting. Lacks safety awareness and complete lack of insight of his own deficits presenting as extreme safety concern. Works with therapy during his stay. Added propranolol due to his basal tremor. He was transferred to [facility] for rehab therapy. MEDICATIONS AT TIME OF ADMISSION: Include: 1. Alprazolam 1 mg 1 p.o. at bedtime, sleep enhancement. 2. Aspirin 81 mg 1 p.o. daily, CAD prevention. 3. Atorvastatin 10 mg 1 p.o. daily, hyperlipidemia. 4. Hydrochlorothiazide 25 mg 1 p.o. daily, blood pressure. 5. Indomethacin 50 mg b.i.d., joint pain. 6. Losartan 100 mg 1 p.o. daily, blood pressure. 7. Nortriptyline 50 mg 1 p.o. at bedtime, sleep enhancement. 8. Paroxetine 40 mg 1 p.o. daily, mood stabilizer. 9. Propanolol XL 60 mg one p.o. daily, tremor. ALLERGIES: No known allergies to medication, environmental, or latex allergies. PAST MEDICAL HISTORY: Significant for previous appendectomy. Chronic illness issues include anxiety, depression, hyperuricemia, and hyperlipidemia. SOCIAL HISTORY: Retired, had worked for many years at [employer], [place] before that time. Still , but physically. [place] She lives in an apartment. Three grown sons. Smoked a bit in college. Alcohol, major issue, had 4 years of sobriety prior to beginning increased alcohol intake in June 2019. No illicit drug use. Does do some chewing tobacco. FAMILY HISTORY: Negative for early heart disease, diabetes mellitus, or inheritable cancers. REVIEW OF SYSTEMS: GENERAL: Cognitively markedly impaired. EYES: Sees well. EARS: Difficulty in crowds. OROPHARYNX: Intact dentition. No loose teeth. CHEST: No cough, wheeze, or congestion. CV: Denies chest pain, palpitations, or syncope. GI: Regular predictable stools. No blood in stools. : Good voiding pattern. Nocturia x1. Decreased stream. SKIN: No lesions, eruptions, or moles. ENDOCRINE: No excessive thirst or urination. ALLERGIES: Noted. PHYSICAL EXAMINATION: VITAL SIGNS: 36.7, 134/88, pulse 64, 18, and 97% on room air. GENERAL: Bright, alert, awake, cognitively troubled. Funduscopic benign. HEENT: Bright TMs. Clear nasal discharge. Mouth and oropharynx clear. NECK: Benign. Thyroid small. CHEST: On auscultation, clear all lung garcia. HEART: On auscultation, no ectopy or murmur. ABDOMEN: Benign. No hepatosplenomegaly. AND RECTAL: Deferred. EXTREMITIES: Well perfused. LABORATORY STUDIES: None indicated, reviewed from [place]. IMPRESSION: Complicated long-term alcohol abuse and misuse, increasingly cognitive concerns. PLAN: Rehab in place. Intervention and care, returning to an independent living situation may be contrary. /[id number] JACQUELINE/TASH JOY
[2019-09-22] MEDS: Aspirin 81 MG Tab.EC PO SCH (20:21)
[2019-09-22] MEDS: atorvaSTATin 10 MG Tab PO SCH (20:22)
[2019-09-22] MEDS: Nortriptyline 25 MG Cap PO SCH (20:22)
[2019-09-22] MEDS: PARoxetine 20 MG Tab PO SCH (20:24)
[2019-09-22] MEDS: ALPRAZolam 1 MG Tab PO PRN (22:28)
[2019-09-23] MEDS: Losartan 100 MG Tab PO SCH (09:58)
[2019-09-23] MEDS: Hydrochlorothiazide 25 MG Tab PO SCH (09:58)
[2019-09-23] MEDS: Propranolol 60 MG Cap.ER PO SCH (09:58)
--- NOTE | 2019-09-23 10:49 | PN ---
DATE SEEN: 09/23/2019 SUBJECTIVE: Matthias Sands is a 73-year-old male, admitted from [place] in [place]. Issues in impactful well being, alcohol misuse and abuse. Then some issues of mentation, thought, and directed attention. I spoke at length about issues and concerns, avoidance of alcohol, resources, self-help. Plans to get home[place] Lives independently. 's not actively involved in the relationship. Therapy feels things are comfortable. MEDICATIONS: Reviewed and are benign in nature. 1. Alprazolam 1 mg at bedtime. 2. 81 mg baby aspirin. 3. Atorvastatin 10 mg daily, hyperlipidemia. 4. Losartan 100 mg 1 daily hypertension. 5. Nortriptyline 100 mg at bedtime, sleep enhancement. 6. Paroxetine 60 mg 1 p.o. daily, mood stabilizer. 7. Inderal LA 60 mg daily, tremor. 8. Indomethacin 50 mg b.i.d., which had been discontinued. 9. Nortriptyline will be maintained. PHYSICAL EXAMINATION: VITAL SIGNS: 36.7, 147/83, 18, and 98. GENERAL: Appears comfortable. Speech was gated but appropriate. Thought processes were pretty well organized. HEENT: Unremarkable. NECK: Supple. Thyroid small. CHEST: Clear. HEART: Regular. ABDOMEN: Rotund. ASSESSMENT: Complicated alcoholic disease. PLAN[place], uncertain of great goals of present therapy. Returning home is planned. /[id number] JACQUELINE/TASH JOY
[2019-09-23] MEDS: atorvaSTATin 10 MG Tab PO SCH (20:27)
[2019-09-23] MEDS: PARoxetine 20 MG Tab PO SCH (20:27)
[2019-09-23] MEDS: Nortriptyline 25 MG Cap PO SCH (20:27)
[2019-09-23] MEDS: Aspirin 81 MG Tab.EC PO SCH (20:27)
[2019-09-23] MEDS: ALPRAZolam 1 MG Tab PO PRN (21:24)
[2019-09-24] MEDS: Losartan 100 MG Tab PO SCH (08:24)
[2019-09-24] MEDS: Hydrochlorothiazide 25 MG Tab PO SCH (08:25)
[2019-09-24] MEDS: Propranolol 60 MG Cap.ER PO SCH (08:25)
[2019-09-24] MEDS: atorvaSTATin 10 MG Tab PO SCH (20:54)
[2019-09-24] MEDS: Aspirin 81 MG Tab.EC PO SCH (20:54)
[2019-09-24] MEDS: Nortriptyline 25 MG Cap PO SCH (20:54)
[2019-09-24] MEDS: PARoxetine 20 MG Tab PO SCH (20:55)
[2019-09-24] MEDS: ALPRAZolam 1 MG Tab PO PRN (23:40)
--- NOTE | 2019-09-25 08:37 | PN ---
DATE SEEN: 09/24/2019 HISTORY OF PRESENT ILLNESS: Matthias Sands is a 73-year-old male, admitted for short-term swing bed stay. Had acute care stay at [facility], 09/14/2019 to 09/21/2019. Presented with acute alcohol intoxication, markedly complicated withdrawal, underlying cognitive impairment, and a sense of deconditioning. It was felt appropriate that swing bed stay would be obtained. Was admitted to [facility] on 09/21/2019. PT/OT nursing staff was involved, ambulated, skills were noted, cognitive impairment impact of his alcohol abuse was apparent. The [facility] and other caregivers will be involved, including [facility]. MEDICATIONS: Reviewed and appropriate. PHYSICAL EXAMINATION: VITAL SIGNS: At the time of dictation, 118/80, 90, 20, 98%, pulse 61. GENERAL: Appears comfortable. In good spirits. NECK: Benign. Thyroid small. CHEST: On auscultation, clear all lung garcia. HEART: On auscultation, no ectopy or murmur. ABDOMEN: Benign. Little bit tremulous, but controlled. ASSESSMENT: Chronic recurrent complicated alcohol and its psychosocial, emotional, and physical impact. PLAN: Walker provided, consideration for home health, [facility] will be involved in skills and allowability of driving and self-care issues. Discharge on hold, pending placement. SURGICAL PROCEDURES: None. CONSULTATION: None. /[id number] JACQUELINE/TASH JOY
[2019-09-25] MEDS: Hydrochlorothiazide 25 MG Tab PO SCH (09:06)
[2019-09-25] MEDS: Losartan 100 MG Tab PO SCH (09:06)
[2019-09-25] MEDS: Propranolol 60 MG Cap.ER PO SCH (09:06)
[2019-09-25] MEDS: atorvaSTATin 10 MG Tab PO SCH (21:36)
[2019-09-25] MEDS: Aspirin 81 MG Tab.EC PO SCH (21:36)
[2019-09-25] MEDS: PARoxetine 20 MG Tab PO SCH (21:36)
[2019-09-25] MEDS: Nortriptyline 25 MG Cap PO SCH (21:36)
[2019-09-25] MEDS: ALPRAZolam 1 MG Tab PO PRN (21:37)
[2019-09-26] MEDS: Hydrochlorothiazide 25 MG Tab PO SCH ×2 (09:04→11:25)
[2019-09-26] MEDS ORDERED: Losartan 50 MG Tab PO ONE (11:00)
[2019-09-26] MEDS ORDERED: Hydrochlorothiazide 12.5 MG Cap PO ONE (11:00)
[2019-09-26] MEDS: Propranolol 60 MG Cap.ER PO SCH (11:23)
[2019-09-26] MEDS: Losartan 100 MG Tab PO SCH (11:25)
[2019-09-26] MEDS: atorvaSTATin 10 MG Tab PO SCH (20:33)
[2019-09-26] MEDS: PARoxetine 20 MG Tab PO SCH (20:33)
[2019-09-26] MEDS: Aspirin 81 MG Tab.EC PO SCH (20:33)
[2019-09-26] MEDS: Nortriptyline 25 MG Cap PO SCH (20:33)
[2019-09-27] MEDS ORDERED: Hydrochlorothiazide 25 MG Tab PO SCH (09:00)
[2019-09-27] MEDS: Losartan 50 MG Tab PO SCH (09:40)
[2019-09-27] MEDS: Hydrochlorothiazide 12.5 MG Cap PO SCH (09:40)
[2019-09-27] MEDS: Propranolol 60 MG Cap.ER PO SCH (09:41)
[2019-09-27] MEDS: atorvaSTATin 10 MG Tab PO SCH (21:41)
[2019-09-27] MEDS: Aspirin 81 MG Tab.EC PO SCH (21:41)
[2019-09-27] MEDS: Nortriptyline 25 MG Cap PO SCH (21:41)
[2019-09-27] MEDS: PARoxetine 20 MG Tab PO SCH (21:41)
[2019-09-27] MEDS ORDERED: Indomethacin 25 MG Cap PO ONE (21:53)
[2019-09-28] MEDS ORDERED: Indomethacin 25 MG Cap PO PRN (08:32)
--- NOTE | 2019-09-28 08:36 | PCM.PN ---
- General Info Date of Service: 09/28/19 Admission Dx/Problem (Free Text): This is a 73-year-old male patient here for swing bed rehabilitation for alcohol abuse, withdrawal it's already happened in because of cognitive decline. He has no concerns today other than he has recurrent gout niece his left great toes bothering little bit. He is given some indomethacin 1 last night. He like his medicine reorder. He denies shortness breath, chest pain, leg swelling. - Patient Data Vitals - Most Recent: Last Vital Signs Temp 98.3 F 09/27/19 09:00 Pulse 76 09/27/19 09:00 Resp 18 09/27/19 09:00 BP 108/80 09/27/19 09:40 Pulse Ox 97 09/27/19 09:00 Weight - Most Recent: 184 lb Med Orders - Current: Current Medications Alprazolam (Xanax) 1 mg PO BEDTIME PRN PRN Reason: Anxiety Last Admin: 09/25/19 21:37 Dose: 1 mg Aspirin (Halfprin) 81 mg PO BEDTIME [facility] Last Admin: 09/27/19 21:41 Dose: 81 mg Atorvastatin Calcium (Lipitor) 10 mg PO BEDTIME [facility] Last Admin: 09/27/19 21:41 Dose: 10 mg Hydrochlorothiazide (Hydrochlorothiazide) 12.5 mg PO DAILY [facility] Last Admin: 09/27/19 09:40 Dose: 12.5 mg Losartan Potassium (Cozaar) 50 mg PO DAILY [facility] Last Admin: 09/27/19 09:40 Dose: 50 mg Nortriptyline HCl (Nortriptyline) 100 mg PO BEDTIME [facility] Last Admin: 09/27/19 21:41 Dose: 100 mg Paroxetine HCl (Paxil) 40 mg PO BEDTIME [facility] Last Admin: 09/27/19 21:41 Dose: 40 mg Propranolol HCl (Inderal La) 60 mg PO DAILY [facility] Last Admin: 09/27/19 09:41 Dose: 60 mg Discontinued Medications Hydrochlorothiazide (Hydrochlorothiazide) 25 mg PO DAILY [facility] Last Admin: 09/26/19 11:25 Dose: Not Given Hydrochlorothiazide (Hydrochlorothiazide) 25 mg PO DAILY [facility] Hydrochlorothiazide (Hydrochlorothiazide) 12.5 mg PO ONETIME ONE Stop: 09/26/19 11:01 Last Admin: 09/26/19 11:23 Dose: 12.5 mg Indomethacin (Indocin) 50 mg PO BIDMEALS [facility] Last Admin: 09/22/19 08:14 Dose: 50 mg Indomethacin (Indocin) 50 mg PO ONETIME ONE Stop: 09/27/19 21:54 Last Admin: 09/27/19 22:09 Dose: 50 mg Losartan Potassium (Cozaar) 100 mg PO DAILY [facility] Last Admin: 09/26/19 11:25 Dose: Not Given Losartan Potassium (Cozaar) 100 mg PO DAILY [facility] Losartan Potassium (Cozaar) 50 mg PO ONETIME ONE Stop: 09/26/19 11:01 Last Admin: 09/26/19 11:23 Dose: 50 mg Nortriptyline HCl (Nortriptyline) 100 mg PO BEDTIME [facility] Last Admin: 09/21/19 21:27 Dose: Not Given Nortriptyline HCl (Nortriptyline) 100 mg PO NOW ONE Stop: 09/21/19 21:31 Last Admin: 09/21/19 21:27 Dose: 100 mg - Exam General: Alert, Oriented, Cooperative Lungs: Clear to Auscultation, Normal Respiratory Effort Cardiovascular: Regular Rate, Regular Rhythm, No Murmurs Extremities: Other (Little bit of discomfort of the first metatarsal joint on the left side. No erythema or swelling.) Sepsis Event Note - Evaluation Sepsis Screening Result: No Definite Risk - Problem List & Annotations (1) Acute cognitive decline SNOMED Code(s): 121915272 Code(s): R41.841 - COGNITIVE COMMUNICATION DEFICIT Status: Acute Current Visit: Yes (2) Alcohol intoxication SNOMED Code(s): 92825539 Code(s): F10.129 - ALCOHOL ABUSE WITH INTOXICATION, UNSPECIFIED Status: Acute Current Visit: No (3) Alcohol withdrawal syndrome SNOMED Code(s): 717296427 Code(s): F10.239 - ALCOHOL DEPENDENCE WITH WITHDRAWAL, UNSPECIFIED Status: Acute Priority: High Current Visit: No Onset Date: 09/23/14 Annotation/ Comment:: admit ICU (4) Gout SNOMED Code(s): 23619690 Code(s): M10.9 - GOUT, UNSPECIFIED Status: Chronic Current Visit: No - Problem List Review Problem List Initiated/Reviewed/Updated: Yes - My Orders Last 24 Hours: My Active Orders 09/27/19 09:00 Losartan [Cozaar] 50 mg PO DAILY hydroCHLOROthiazide 12.5 mg PO DAILY 09/28/19 08:32 Indomethacin [Indocin] 50 mg PO TIDMEALS PRN - Plan Plan:: 1. Continue current care. 2. Indomethacin 50 mg 3 times a day when necessary for gout. 3. Patient is waiting for possible transfer to [place] for alcohol treatment.
[2019-09-28] MEDS: Losartan 50 MG Tab PO SCH (08:39)
[2019-09-28] MEDS: Hydrochlorothiazide 12.5 MG Cap PO SCH (08:39)
[2019-09-28] MEDS: Propranolol 60 MG Cap.ER PO SCH (08:39)
[2019-09-28] MEDS ORDERED: Losartan 100 MG Tab PO SCH (09:00)
[2019-09-28] MEDS: atorvaSTATin 10 MG Tab PO SCH (20:49)
[2019-09-28] MEDS: Nortriptyline 25 MG Cap PO SCH (20:49)
[2019-09-28] MEDS: Aspirin 81 MG Tab.EC PO SCH (20:49)
[2019-09-28] MEDS: PARoxetine 20 MG Tab PO SCH (20:50)
[2019-09-29] MEDS: Propranolol 60 MG Cap.ER PO SCH (09:08)
[2019-09-29] MEDS: Hydrochlorothiazide 12.5 MG Cap PO SCH (09:08)
[2019-09-29] MEDS: Losartan 50 MG Tab PO SCH (09:08)
[2019-09-29] MEDS: Aspirin 81 MG Tab.EC PO SCH (20:13)
[2019-09-29] MEDS: Nortriptyline 25 MG Cap PO SCH (20:14)
[2019-09-29] MEDS: PARoxetine 20 MG Tab PO SCH (20:14)
[2019-09-29] MEDS: atorvaSTATin 10 MG Tab PO SCH (20:14)
[2019-09-30] MEDS: Hydrochlorothiazide 12.5 MG Cap PO SCH (08:24)
[2019-09-30] MEDS: Losartan 50 MG Tab PO SCH (08:24)
[2019-09-30] MEDS: Propranolol 60 MG Cap.ER PO SCH (08:24)
[2019-09-30] MEDS: Bisacodyl 5 MG Tab PO PRN (13:56)
[2019-09-30] MEDS: Aspirin 81 MG Tab.EC PO SCH (20:39)
[2019-09-30] MEDS: Nortriptyline 25 MG Cap PO SCH (20:40)
[2019-09-30] MEDS: PARoxetine 20 MG Tab PO SCH (20:40)
[2019-09-30] MEDS: atorvaSTATin 10 MG Tab PO SCH (20:40)
[2019-10-01] MEDS ORDERED: Bisacodyl 10 MG Supp RECTAL PRN (08:07)
[2019-10-01] MEDS: Hydrochlorothiazide 12.5 MG Cap PO SCH (08:58)
[2019-10-01] MEDS: Losartan 50 MG Tab PO SCH (08:58)
[2019-10-01] MEDS: Propranolol 60 MG Cap.ER PO SCH (08:58)
[2019-10-01] MEDS: Bisacodyl 5 MG Tab PO PRN (15:17)
[2019-10-01] MEDS: atorvaSTATin 10 MG Tab PO SCH (21:26)
[2019-10-01] MEDS: Nortriptyline 25 MG Cap PO SCH (21:26)
[2019-10-01] MEDS: PARoxetine 20 MG Tab PO SCH (21:26)
[2019-10-01] MEDS: Aspirin 81 MG Tab.EC PO SCH (21:26)
[2019-10-02 08:27] VITALS: BP 116/80
[2019-10-02] MEDS: Hydrochlorothiazide 12.5 MG Cap PO SCH (08:27)
[2019-10-02] MEDS: Losartan 50 MG Tab PO SCH (08:27)
[2019-10-02] MEDS: Propranolol 60 MG Cap.ER PO SCH (08:27)
[2019-10-02 11:07] VITALS: PULSE 80
--- NOTE | 2019-10-07 10:42 | DISCH ---
DISCHARGE DATE: 10/02/2019 REASON FOR ADMISSION: Alcohol intoxication and withdrawal. DISCHARGE DIAGNOSES: 1. Withdrawal syndrome. 2. Alcohol abuse. 3. Hypertension. 4. Cognitive decline. 5. Gout. 6. Depression and anxiety. 7. Hyperlipidemia. BRIEF HISTORY: This is a 73-year-old male with chronic alcohol abuse, admitted with decline, frequent falls, and withdrawal. to swing bed on the for rehab to wait for placement, improved on physical therapy and was discharged on the to home with home healthcare urgency. DISCHARGE MEDICATIONS: 1. Hydrochlorothiazide 12.5 mg daily. 2. Losartan 50 mg a day. 3. Nortriptyline 100 mg at night. 4. Propranolol 60 mg daily. 5. Also go home on paroxetine 40 mg a day. 6. Indomethacin 25 mg t.i.d. p.r.n. with meals. 7. He will also take Lipitor 10 mg at bedtime. 8. Aspirin 1 tablet at bedtime. 9. He has 1 mg Xanax at bedtime p.r.n. FOLLOWUP: He will be seeing his PCP within a week after discharge. I spent more than 35 minutes in the discharge of the patient. /[id number] WILMER/TASH
== END 2019-10-02 14:00 | disposition home health service (06) | DRG 897 ==
LOC: FB.MS 14:25
PROVIDERS: ADMIT Family Medicine; ATTEND Family Medicine
DX: F10.239 Alcohol dependence with withdrawal, unspecified (principal); G31.84 Mild cognitive impairment of uncertain or unknown etiology; Z79.82 Long term (current) use of aspirin; M10.9 Gout, unspecified; Z79.899 Other long term (current) drug therapy
CPT/HCPCS: 97112-GP; 97116-GP; 97161-GP; 97165-GO; 97530-GO; 97535-GO; A9270-GY; U0002

== ENCOUNTER 2020-05-12 07:10 | Day surgery (SDC) | payer MEDICARE, BC ==
[2020-05-12] MEDS ORDERED: Propofol 200 MG/20 ML SDV IV ONE (07:11)
[2020-05-12] MEDS ORDERED: Glycopyrrolate 0.2 MG/ML 5 ML MDV IV ONE (07:11)
[2020-05-12] MEDS ORDERED: Rocuronium 50 MG/5 ML Vial IV ONE (07:11)
[2020-05-12] MEDS ORDERED: Dexmedetomidine 200 MCG/2 ML SDV IV ONE (07:11)
[2020-05-12] MEDS ORDERED: Neostigmine Methylsulfate 10 MG/10 ML MDV IVPUSH ONE (07:11)
[2020-05-12] MEDS ORDERED: ePHEDrine 50 MG/ML SDV IV ONE (07:11)
[2020-05-12] MEDS ORDERED: Midazolam 1 MG/ML 2 ML SDV IV ONE (07:11)
[2020-05-12] MEDS ORDERED: Lactated Ringers 1,000 ML IV ONE (07:11)
[2020-05-12] MEDS ORDERED: HYDROmorphone 2 MG/ML SDV IV ONE (07:11)
[2020-05-12] MEDS ORDERED: Ketorolac 30 MG/ML SDV IVPUSH ONE (07:11)
[2020-05-12] MEDS ORDERED: fentaNYL 100 MCG/2 ML SDV IV ONE (07:11)
[2020-05-12] MEDS ORDERED: Sodium Chloride 0.9% 10 ML Syringe FLUSH PRN (07:15)
[2020-05-12] MEDS ORDERED: Lactated Ringers 1,000 ML IV SCH (07:15)
[2020-05-12] MEDS ORDERED: ceFAZolin 2 GM in Premix Bag 1 BAG IV ONE (08:45)
[2020-05-12] MEDS ORDERED: Lidocaine 1% with EPINEPHrine 1:100,000 20 ML MDV INJECT ONE (09:05)
[2020-05-12] MEDS ORDERED: Bupivacaine 0.5% 30 ML SDV INJECT ONE (09:05)
--- NOTE | 2020-05-12 10:14 | PCM.OPNOTE ---
- General Post-Op/Procedure Note Date of Surgery/Procedure: 05/12/20 Operative Procedure(s): incisional hernia repair with mesh excision of calcification of scar Findings: 2 cm defect hernia 1x3 cm calcified scar tissue Pre Op Diagnosis: incisional hernia Post-Op Diagnosis: incisional hernia with calcific scar tissue Anesthesia Technique: General ET Tube, Local (7 ml 1% lido with epi/0.5% buvipicaine) Primary Surgeon: Jonathan Rhoades Anesthesia Provider: Renee Ahumada Pathology: calcified tissue hernia sac and contents Complications: None Condition: Good Free Text/Narrative:: see dictation [id number]
[2020-05-12 12:52] VITALS: BP 108/78; PULSE 73
--- NOTE | 2020-05-12 13:20 | OR ---
DATE OF OPERATION: 05/12/2020 SURGEON: Jonathan Rhoades MD PROCEDURE PERFORMED: Incisional hernia repair, excision of abdominal wall calcification. PREOPERATIVE DIAGNOSIS: Incisional hernia. POSTOPERATIVE DIAGNOSIS: Incisional hernia with calcification of an operative scar. INDICATIONS FOR PROCEDURE: This is a 74-year-old white male, referred with an incisional hernia that was partially reducible. In addition, he had a firm nodule that was located in the area of the hernia. He was offered and accepted repair. INTRAOPERATIVE FINDINGS: 7 mL of 1:1 mixture of 1% lidocaine with epinephrine, 0.5% bupivacaine was used to infiltrate our incision site. There was a 1 x 3 cm area of calcification that was located in the midline just above a 2-cm defect. This was excised, passed off the field. The hernia defect itself measured 2 cm in diameter. The defect itself was repaired after excision of the fascia with the calcification with a [facility] ST Hernia patch, reference #[id number], lot #[id number] with an expiration date of and this is 8 x 12 cm size. DESCRIPTION OF PROCEDURE: After an excellent general anesthetic was administered via endotracheal tube, the patient was prepped and draped in usual sterile manner. An incision was made over the palpated area of the defect, and careful sharp dissection was carried out. We did not see an obvious hernia site along the midline fascia. We did feel some calcification superior to this, so the incision was extended and the firm calcific nodule as previously described was noted. This was excised sharply and part of the scar/fascia was removed. We were able to palpate a small hernia defect inferior to this. The sharp dissection was carried out dissecting free the hernia sac itself. The fascia was connected to the midline fascial defect that was created with the excision. The hernia sac was dissected free using a combination of sharp and LigaSure dissection. We were able, therefore, to mobilize the fascia on the left and right side by using the LigaSure to expose the underlying anterior abdominal wall fascia. The small defect was then noted in the omentum. This was closed with a running 3-0 Vicryl. The overall defect with the excision of the nodule as well as the hernia was measured and this came in at roughly 6 x 3. An 8 x 12 mesh was then chosen to facilitate our repair. The mesh was soaked and inserted into the abdominal cavity and tacked circumferentially with Stat Tack. The fascial defect was closed with 2 running 0 Prolenes, which incorporated the mesh as we closed. Once the fascial defect was approximated, wound was irrigated, subcu fat was approximated with a running 3-0 Vicryl. The skin was closed with tri. Needle, sponge, and instrument counts were reported as correct. The patient was taken to recovery in good condition. /[id number] /MODL
== END 2020-05-12 12:39 | disposition home or self-care (01) ==
LOC: FB.SDS 07:10
PROVIDERS: ATTEND Surgery
DX: K43.2 Incisional hernia without obstruction or gangrene (principal); I10 Essential (primary) hypertension; M10.9 Gout, unspecified; Z90.49 Acquired absence of other specified parts of digestive tract; Z79.899 Other long term (current) drug therapy
CPT/HCPCS: 00752-QZ; 94150; C1781; J0690; J1170; J1885; J2250; J2704; J2710; J3010; J3490; J7120

== ENCOUNTER 2021-07-10 06:13 | Day surgery (SDC) | payer MEDICARE, BC ==
[2021-07-10] MEDS ORDERED: Lidocaine 1% PF 2 ML SDV INJECT ONE (06:14)
[2021-07-10] MEDS ORDERED: Propofol 200 MG/20 ML SDV IV ONE (06:14)
[2021-07-10] MEDS ORDERED: Sodium Chloride 0.9% 10 ML Syringe FLUSH PRN (06:15)
[2021-07-10] MEDS: Lactated Ringers 1,000 ML IV SCH (07:15)
[2021-07-10 12:30] VITALS: BP 143/89; PULSE 80
[2021-07-12 01:11] LABS: ADENOVIRUS F 40/41 Not Detected (Not Detected); ASTROVIRUS Not Detected (Not Detected); C DIFFICILE TOXIN A/B Not Detected (Not Detected); CAMPYLOBACTER Not Detected (Not Detected); CRYPTOSPORIDIUM Not Detected (Not Detected); CYCLOSPORA CAYETANENSIS Not Detected (Not Detected); ENTAMOEBA HISTOLYTICA Not Detected (Not Detected); ENTEROAGGREGATIVE E COLI Not Detected (Not Detected); ENTEROPATHOGENIC E COLI Not Detected (Not Detected); ENTEROTOXIGENIC E COLI Not Detected (Not Detected); GIARDIA LAMBLIA Not Detected (Not Detected); NOROVIRUS GI/GII Not Detected (Not Detected); PLESIOMONAS SHIGELLOIDES Not Detected (Not Detected); ROTAVIRUS A Not Detected (Not Detected); SALMONELLA Not Detected (Not Detected); SAPOVIRUS Not Detected (Not Detected); SHIGA-TOXIN-PRODUCING E COLI Not Detected (Not Detected); SHIGELLA/ENTEROINVASIVE E COLI Not Detected (Not Detected); VIBRIO Not Detected (Not Detected); VIBRIO CHOLERAE Not Detected (Not Detected); YERSINIA ENTEROCOLITICA Not Detected (Not Detected)
== END 2021-07-10 09:10 | disposition home or self-care (01) ==
LOC: FB.SDS 06:13
PROVIDERS: ATTEND Surgery
DX: Z12.11 Encounter for screening for malignant neoplasm of colon (principal); K51.90 Ulcerative colitis, unspecified, without complications; K57.30 Diverticulosis of large intestine without perforation or abscess without bleeding; F41.9 Anxiety disorder, unspecified; F32.A Depression, unspecified; I10 Essential (primary) hypertension; Z90.49 Acquired absence of other specified parts of digestive tract; Z86.010 Personal history of colon polyps; Z79.899 Other long term (current) drug therapy; Z98.890 Other specified postprocedural states; Z86.73 Personal history of transient ischemic attack (TIA), and cerebral infarction without residual deficits
CPT/HCPCS: 00811-QZ; 0097U; 88305; 89055; J2704; J7120